=== PATIENT | male | born 1945 | race Two or more races ===

== ENCOUNTER → 2016-06-11 | Day surgery (SDC) | payer MEDICARE, OTHER ==
--- NOTE | 2016-06-07 11:31 | Pre-Procedure Note/Attestation ---
Pre-Procedure Note/Attestation Complete Prior to Procedure Planned Procedure: bilateral Procedure Narrative: 1- Ptosis correction, upper lids 2- Entropion correction upper lids 3- Blepharoplasty, upper lids 4-Ectropion correction ,lower lids Indications for Procedure Pre-Operative Diagnosis: 1- Ptosis ,upper lids 2- Entropion, upper lids 3- Blepharochalasis and dermatochalasis upper lids 4- Ectropion ,lower lids Attestation I attest that I discussed the nature of the procedure; its benefits; risks and complications; and alternatives (and the risks and benefits of such alternatives ), prior to the procedure, with the patient (or the patient's legal access services representative). I attest that, if there was a reasonable possibility of needing a blood transfusion, the patient (or the patient's legal access services representative) was given the [facility] standardized written summary, pursuant to the [place] Pre[place] Blood Safety Act ([place] Health and Safety Code # 1645, as amended). I attest that I re-evaluated the patient just prior to the surgery and that there has been no change in the patient's H&P, except as documented below: ONEL BLACK Jun 07, 2016 11:31
[2016-06-11] VITALS (8 sets, daily range): BP systolic 119–132; BP diastolic 72–84
[~2016-06-11] VITALS: Ht 162.6 cm; Wt 46.7 kg
[~2016-06-11] MED LIST: Akten 3.5% 1ml Btl BOTH EYES ONE; Akten 3.5% 1ml Btl ONE; BSS 15ml BTL ONE; Bupivacaine 0.75% 30ml vial INJ ONE; DiphenhydrAMINE 50mg/ml Inj IVP PRN; KLONOPIN1 MG ORAL; LR 1000ml 1,000 ML IVLG SCH; LR 1000ml ONE; Labetalol 5mg/ml 20ml vial IV PRN; Lidocaine 1% MPF 10mg/ml 5ml ONE; Lidocaine 2% 20mg/ml/Epi 0.005mg/ml 20ml vial ONE; Maxitrol Opth Oint 3.5gm BOTH EYES ONE; NS Irrig 1000ml ONE; Povidone-Iodine 5% opth solution ONE; Propofol 10mg/ml 20ml IV ONE; Sterile Water Irrig 1000ml IRRIG ONE; TYLENOL EXTRA500 MG ORAL; Tobradex Opth Oint 3.5gm ONE; fentaNYL 100 mcg/2 mL IV ONE
--- NOTE | 2016-06-11 08:34 | Anethesia Preoperative Eval ---
Anesthesia Pre-op PMH/ROS General Date of Evaluation: Jun 11, 2016 Anesthesiologist: Vincent ASA Score: ASA 3 Mallampati Score Class I : Soft palate, uvula, fauces, pillars visible Class II: Soft palate, uvula, fauces visible Class III: Soft palate, base of uvula visible Class IV: Only hard plate visible Mallampati Classification: Class II Surgeon: Solo Diagnosis: bilateral eyelid ptosis Surgical Procedure: bilateral blepharoprasty Anesthesia History: none Family History: no anesthesia problems Allergies: Coded Allergies: No Known Allergies (Unverified , 06/07/16) Medications: see eMAR Past Medical History Cardiovascular: Reports: valve dz - aortic stenosis as per records, pt without symptoms, Denies: CAD, HTN, OR, arrhythmia, other Pulmonary: Denies: COPD, BOB, asthma, other Gastrointestinal/Genitourinary: Reports: GERD, Denies: CRI, ESRD, other Neurologic/Psychiatric: Reports: depression/anxiety, Denies: CVA, TIA, dementia, other Endocrine: Denies: DM, hypothyroidism, other, steroids HEENT: Denies: [place] (L), [place] (R), cataract (L), cataract (R), glaucoma, other Hematology/Immune: Denies: DVT, anemia, bleeding disorder, other Musculoskeletal/Integumentary: Reports: DJD, OA, Denies: DDD, RA, edema, other PSxH Narrative: bilateral cataract surgery Anesthesia Pre-op Phys. Exam Physician Exam see chart Constitutional: NAD Cardiovascular: RRR Respiratory: CTA Airway Exam Mallampati Score: Class II MO: full ROM: full Anesthesia Pre-op A/P Labs see chart Studies Pre-op Studies: EKG - sr Risk Assessment & Plan Assessment: ASA III Plan: MAC Status Change Before Surgery: No Pre-Antibiotics Drug: N/A PARUL MARADIAGA M.D. Jun 11, 2016 08:34
--- NOTE | 2016-06-11 09:31 | 48 Hour Post Anesthesia Eval ---
Post Anesthesia Evaluation Procedure: Bilateral blepharoplasty Date of Evaluation: Jun 11, 2016 Blood Pressure Systolic: 127 0: 84 Pulse Rate: 73 Respiratory Rate: 12 O2 Sat by Pulse Oximetry: 97 Airway: patent Nausea: No Vomiting: No Pain Intensity: 0 Hydration Status: adequate Cardiopulmonary Status: at baseline Mental Status/LOC: patient returned to baseline Post-Anesthesia Complications: 0 Follow-up care needed: ready to discharge PARUL MARADIAGA M.D. Jun 11, 2016 09:31
--- NOTE | 2016-06-11 09:31 | Immediate Post-Op Evaluation ---
Immediate Post-Op Evalulation Immediate Post-Op Evalulation Procedure: Bilateral blepharoplasty Date of Evaluation: Jun 11, 2016 Time of Evaluation: 12:15 IV Fluids: 600 Blood Products: 0 Estimated Blood Loss: 0 Urinary Output: 0 Blood Pressure Systolic: 131 Blood Pressure Diastolic: 84 Pulse Rate: 76 Respiratory Rate: 16 O2 Sat by Pulse Oximetry: 97 Temperature (Fahrenheit): 98.8 Pain Score (1-10): 0 Nausea: No Vomiting: No Complications 0 Patient Status: awake, reacts, patent, none Hydration Status: adequate Drug: N/A PARUL MARADIAGA M.D. Jun 11, 2016 09:31
--- NOTE | 2016-06-11 12:16 | Brief Operative Note ---
Immediate Post Operative Note Operative Note Chief Complaint: Pain and tearing. Droopy eyelids, difficulty driving and reading Pre-op Diagnosis: 1- Ptosis ,upper lids 2- Entropion, upper lids 3- Blepharochalasis and dermatochalasis upper lids 4- Ectropion ,lower lids Procedure: 1- Ptosis correction upper lids 2- Entropion correction upper lids 3- Blepharoplasty, upper lids 4- Entropion correction, lower lids Post-op Diagnosis: same as pre-op Surgeon: Onel Banda MD. Manager Clinical Research: None Additional Surgeons: None Anesthesiologist: Dr. Kaur Anesthesia: local, MAC Specimen: none Complications: none Condition: stable Estimated Blood Loss: minimal Drains: none Implant(s) used?: ONEL Caro Jun 11, 2016 12:16
--- NOTE | 2016-06-12 04:58 | Operative Note - Dictated ---
DATE OF OPERATION: 06/11/2016 FACILITY: [facility]. SURGEON: Ludin Banda M.D. [employer] SPECIALIST: None. ANESTHESIOLOGIST: Dr. Kaur. Anesthesia: Monitored anesthesia care (MAC) plus local anesthesia with lidocaine 2% with epinephrine 1:100,000 mixed with Marcaine 0.25%, 50:50. PREOPERATIVE DIAGNOSES: 1. Ptosis, upper lids, both eyes. 2. Entropion of upper lids, both eyes. 3. Dermatochalasis, upper lids, both eyes. 4. Ectropion, lower lids, both eyes. POSTOPERATIVE DIAGNOSES: 1. Ptosis, upper lids, both eyes. 2. Entropion of upper lids, both eyes. 3. Dermatochalasis, upper lids, both eyes. 4. Ectropion, lower lids, both eyes. SURGERY PERFORMED: 1. Ptosis correction, upper lids. 2. Entropion correction, upper lids. 3. Blepharoplasty, upper lids. 4. Ectropion correction, lower lids. INDICATION FOR SURGERY: The patient is a 70-year-old gentleman with history of aortic valve stenosis, bursitis of the shoulder, constipation, and gastroesophageal reflux disease (GERD). The patient had pulmonary nodules, depression, and anxiety. He is taking lot of medications including calcium, clonazepam, Tylenol, vitamin E, and Zantac. The patient is a smoker. The patient is complaining of tearing, pain, redness, droopy eyelids, difficulty vision, and difficulty driving. 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 Also, he has ectropion of the lower lids. This is a progressive dermatochalasis of skin disease with resultant change of corneal curvature, which induces astigmatism with covering of the visual axis and this is a kind of barrier for driving. The ectropion is seen in the lower eyelids. It causes corneal exposure and corneal ulcer . The severity of the patient with dermatochalasis, ptosis, entropion, and ectropion is clearly demonstrated on enclosed photos and the patient's visual razo. The only solution for this patient is correction of all these disfigurement and anatomic changes with surgery. INFORMED CONSENT: The nature of the surgery, risks, benefits, alternatives, and potential complications were explained to the patient in detail in his language, Farsi. He voiced understanding. The potential complications including, but not limited to bleeding, infection, corneal exposure, overcorrection, undercorrection, ecchymosis, swelling of the face, hematoma, dry eye, loss of eyelashes, loss of eyebrows, inequality of both eyes, change in vision, even loss of vision, and loss of the eye were all explained in detail to the patient, who voiced understanding and accepted all the complications. Then, he signed the consent form, which is in the chart. DESCRIPTION OF SURGERY AND FINDINGS: Following that, the patient was taken to the operation room in stable condition. Lidocaine gel, Akten 3.5% were applied to the conjunctivae of both eyes. Following that, the upper eyelids were marked with a marking pen 10 mm above the root of the eyelashes and 10 mm below the lower part of the eyebrow. About 20 mm of the skin was left to facilitate eye closure. IV sedation was given by the anesthesiologist, Dr. Kaur. After adequate anesthesia and sedation had been achieved, the upper lids, eyebrow, and lower lids all were anesthetized with 2% lidocaine and epinephrine mixed with Marcaine. Following that, using a Bovie knife, the skin and dermal tissue were dissected from the orbicularis oculi muscle and excised. A cut was made into the orbicularis oculi muscle. Hemostasis was performed. The two fat compartments were resected. Then, the medial fat compartments were removed and moved into the medial aspect of the superior sulcus and stitched to that area because the patient has lot of fat in this area and it is very thick. Following that, the levator palpebrae superioris muscle was dissected to the aponeurosis of the muscle and aponeurosis of the muscle was tacked at 6 mm and marked with 3 stitches on each side. Then, the palpebral fissure was compared on both sides. Following that, a wedge groove was made 3 mm above the root of the upper eyelid lashes. Following that, a tarsal plate was grooved. The tarsal material seen inside the groove was excised with a Vannas scissors. Following that, the lids of the groove were stitched with 6-0 Vicryl and eyelid borders were taken upward and lashes were turned from downwards to upwards. The orbicularis oculi muscle was then reached and trimmed. Following that, the lower lid was anesthetized with lidocaine 2% and Marcaine. Following that, split was created. A lateral canthotomy was performed. Then, the inferior lid was released from the attachment to the bone. Following that, was created. Following that, was stitched through the of the lateral canthus with 6-0 Vicryl. Following that, the skin was stitched . Then, the procedure was performed in the left eye as well. At the end of the procedure, the skin was stitched and wound was closed with 6-0 plain gut a running stitch. At the end of the surgery, TobraDex eye ointment was applied to the wound. Following that, the patient was taken to recovery room. In the recovery room, cold compress was applied to the area. The wound was checked for bleeding. There was no bleeding. Postoperative orders and directions were given to the patient. The patient will be discharged home upon stabilization. The patient will be followed in my office tomorrow morning. Ludin Banda M.D. DR: NICOLASA JOB#: [id number] CC:
--- NOTE | 2016-06-12 07:28 | Discharge Summary ---
DATE OF ADMISSION: 06/11/2016 DATE OF DISCHARGE: 06/11/2016 REASON FOR HOSPITALIZATION: 1. Ptosis, upper lids.. 2. Entropion of upper lids. 3. Dermatochalasis, upper lids. 4. Ectropion, lower lids. SURGERY PERFORMED: 1. Ptosis correction, upper lids. 2. Entropion correction, upper lids. 3. Blepharoplasty, upper lids. 4. Ectropion correction, lower lids. HOSPITAL COURSE AND TREATMENT RENDERED: The patient tolerated the surgery without complications. DISCHARGE CONDITION: The patient was stable at discharge. DISCHARGE MEDICATIONS: 1. TobraDex eyedrops one drop q.i.d., both eyes. 2. Maxitrol eye ointment apply to the wound p.r.n. . 3. Keflex 500 mg one p.o. q.8 h. 4. [place] 5 mg/325 mg one tablet p.o. every six hours as need for pain. POSTOPERATIVE ORDERS AND INSTRUCTIONS: The patient has to rest at home. No bending. No lifting. POSTOPERATIVE FOLLOWUP: The patient will be followed in my office tomorrow morning. Ludin Banda M.D. DR: NICOLASA JOB#: [id number] CC:
== END | disposition home or self-care (01) ==
LOC: SUR 08:24
DX: H02.034 Senile entropion of left upper eyelid (principal); H02.031 Senile entropion of right upper eyelid; H02.834 Dermatochalasis of left upper eyelid; H02.831 Dermatochalasis of right upper eyelid; H02.132 Senile ectropion of right lower eyelid; H02.135 Senile ectropion of left lower eyelid; I35.0 Nonrheumatic aortic (valve) stenosis; R91.1 Solitary pulmonary nodule; F32.9 Major depressive disorder, single episode, unspecified; F41.9 Anxiety disorder, unspecified; K59.00 Constipation, unspecified; M75.50 Bursitis of unspecified shoulder; M19.90 Unspecified osteoarthritis, unspecified site; K21.9 Gastro-esophageal reflux disease without esophagitis; F17.210 Nicotine dependence, cigarettes, uncomplicated; Z85.828 Personal history of other malignant neoplasm of skin
CPT/HCPCS: 15823; 67917; 67924; J1200; J2704; J3010; J3490; J7120; 94003; 94150